=== PATIENT | male | born 1965 | race Caucasian/White ===

== ENCOUNTER 2017-12-04 13:49 | Emergency (ER) | payer SELFPAY ==
[~2017-12-04] VITALS: Ht 182.9 cm; Wt 141.3 kg
[2017-12-04 13:50] VITALS: BP 176/101
[2017-12-04] MEDS ORDERED: KETOROLAC 30 MG/1 ML ONE (14:53)
[2017-12-04] MEDS ORDERED: OXYcodone/APAP 5/325MG TABLET ONE (14:53)
[2017-12-04] MEDS ORDERED: OXYcodone/APAP 5/325MG TABLET PO ONE (15:00)
[2017-12-04] MEDS ORDERED: KETOROLAC 30 MG/1 ML IM ONE (15:00)
== END 2017-12-04 15:27 ==
LOC: ED 15:21
DX: M25.551 Pain in right hip (principal); M16.11 Unilateral primary osteoarthritis, right hip
CPT/HCPCS: 73502; 93005; 96372; 99284; J1885